=== PATIENT | female | born 1990 | race Caucasian/White ===

== ENCOUNTER 2020-12-25 19:54 | Emergency (ER) | payer MEDICAID ==
[~2020-12-25] VITALS: Ht 157.5 cm; Wt 63.5 kg
[2020-12-25 20:08] VITALS: BP 130/79
--- NOTE | 2020-12-25 20:08 | NUR ---
TO BED AMBULATORY
--- NOTE | 2020-12-25 20:20 | NUR ---
30 yo f bib self with c/c of r wrist pain x1wk 02/12. pt stated pain started all of sudden. when holding items pain increases and radiates to back. pt stated +numbness, +radial pulses bilat strong. pt is able to move hand. pt stated she took tylenol 6 hrs ago with little relief. bed locked in lowest position, side rails x2. lasr menst: november 26
--- NOTE | 2020-12-25 20:30 | NUR ---
rad at bedside.
--- NOTE | 2020-12-25 20:45 | NUR ---
ermd at bedside.
--- NOTE | 2020-12-25 20:46 | NUR ---
rad made aware of neg preg test.
--- NOTE | 2020-12-25 20:50 | NUR ---
rad at bedside
[2020-12-25] MEDS ORDERED: HYDROcodone/APAP 10/325 MG 1 TAB TAB PO ONE (21:20)
--- NOTE | 2020-12-25 21:26 | NUR ---
pt given a warm blanket. all needs met at this time. side rails x1, bed locked in lowest position.
[2020-12-25] MEDS ORDERED: IBUP-1801 PO (21:32)
--- NOTE | 2020-12-25 21:35 | NUR ---
emt at bedside providing tx.
[2020-12-25 21:45] VITALS: BP 130/79
== END 2020-12-25 21:45 | disposition home or self-care (01) ==
LOC: MED 19:54
DX: M25.531 Pain in right wrist (principal); Z79.899 Other long term (current) drug therapy; V89.2XXA Person injured in unspecified motor-vehicle accident, traffic, initial encounter; Y93.89 Activity, other specified; Y92.89 Other specified places as the place of occurrence of the external cause; Y99.8 Other external cause status
CPT/HCPCS: 73110; 81025; 99285

== ENCOUNTER 2023-07-03 18:51 | Emergency (ER) | payer MEDICAID, OTHER ==
[~2023-07-03] VITALS: Ht 160 cm; Wt 68.0 kg
[2023-07-03 18:51] VITALS: BP 121/78; PULSE 92; RESP 18; TEMP 97.8; O2SAT 98
[~2023-07-03 18:51] MED LIST: IBUP-1801 PO
[2023-07-03 20:20] LABS: BASOPHILS % (AUTO) 0.3 % (0.0-2.0); EOSINOPHILS # (AUTO) 0.1 K/uL (0-0.4); EOSINOPHILS % (AUTO) 0.7 % (0.0-4.0); HEMATOCRIT 38.2 % (36-48); HEMOGLOBIN 13.5 g/dL (12.0-16.0); LYMPHOCYTES # (AUTO) 1.8 K/uL (2.5-16.5); LYMPHOCYTES % (AUTO) 18.7 % (20.5-51.1); MEAN CORPUSCULAR HEMOGLOBIN 32 pg (27-31); MEAN CORPUSCULAR HGB CONC 35 g/dL (33-37); MEAN CORPUSCULAR VOLUME 90.3 fL (80-94); MONOCYTES # (AUTO) 0.7 K/uL (0.8-1.0); MONOCYTES % (AUTO) 7.1 % (1.7-9.3); NEUTROPHILS # (AUTO) 7.1 K/uL (1.8-7.7); NEUTROPHILS % (AUTO) 73.2 % (42.2-75.2); PLATELET COUNT (AUTO) 298 K/uL (140-450); RED BLOOD CELL COUNT(AUTO) 4.24 MIL/uL (4.20-5.40); RED CELL DISTRIBUTION WIDTH 13.4 % (11.6-13.7); WHITE BLOOD COUNT (AUTO) 9.7 K/uL (4.8-10.8)
[2023-07-03 20:40] LABS: ANION GAP 10.6 (8-16); CALCIUM 9.2 mg/dL (8.5-10.1); CARBON DIOXIDE 29.4 mmol/L (21-32); CREATININE 0.8 mg/dL (0.6-1.3)
[2023-07-03 20:45] LABS: AMPHETAMINE, URINE NEGATIVE ng/ml (NEG <=1000); BARBITURATE, URINE NEGATIVE ng/ml (NEG <=200); BENZODIAZEPINE, URINE NEGATIVE ng/mL (NEG <=200); CANNABINOID, URINE NEGATIVE ng/mL (NEG <=50); COCAINE, URINE NEGATIVE ng/mL (NEG <=300); OPIATE, URINE NEGATIVE ng/mL (NEG <=2000); PHENCYCLIDINE SCREEN,URINE NEGATIVE ng/mL (NEG <=25)
[2023-07-03 20:46] LABS: ACETAMINOPHEN < 0.5 ug/ml (10-30); ALCOHOL, BLOOD < 3 mg/dL (<10); SALICYLATE < 2.8 mg/dL (2.8-20.0)
[2023-07-03 22:53] LABS: HIV RAPID SCREEN NON-REACTIVE (NON REACTIV)
[2023-07-04 00:20] VITALS: O2SAT 98
[2023-07-04 03:50] VITALS: O2SAT 98
[2023-07-04] MEDS ORDERED: ACETAMINOPHEN EXTRA STRENGTH 500 MG TAB PO ONE (08:25)
[2023-07-04] MEDS ORDERED: OLANZapine 5 MG ODT PO SCH (09:00)
[2023-07-04 12:20] VITALS: BP 114/62; PULSE 72; RESP 16; TEMP 97.9; O2SAT 98
[2023-07-05 10:06] LABS: HEPATITIS B SURFACE ANTIBODY Reactive (.); HEPATITIS B SURFACE ANTIGEN Negative (Negative)
[2023-07-05 10:49] LABS: RAPID PLASMA REAGIN NON-REACTIVE (Non Reactiv)
== END 2023-07-04 12:19 ==
LOC: MED 18:51
DX: Z00.8 Encounter for other general examination (principal); T74.21XA Adult sexual abuse, confirmed, initial encounter; Z20.822 Contact with and (suspected) exposure to COVID-19; Z79.899 Other long term (current) drug therapy
CPT/HCPCS: 36415; 74176; 80048; 80305; 81025; 85025; 86592; 86703; 86706; 87340; 87426; 87529; 99285; G0480; G0482

== ENCOUNTER 2023-08-20 07:23 | Emergency (ER) | payer OTHER ==
[~2023-08-20] VITALS: Ht 157.5 cm; Wt 77.6 kg
[2023-08-20 07:28] VITALS: BP 106/67; PULSE 103; RESP 16; TEMP 97.1; O2SAT 97
[2023-08-20] MEDS: LORazepam 1 MG TAB PO ONE (08:20)
[2023-08-20 08:36] VITALS: BP 124/79; PULSE 88; RESP 16; TEMP 98; O2SAT 99
== END 2023-08-20 08:36 | disposition home or self-care (01) ==
LOC: MED 07:23
DX: E86.0 Dehydration (principal); R25.1 Tremor, unspecified; T43.615A Adverse effect of caffeine, initial encounter; F20.9 Schizophrenia, unspecified; Z79.899 Other long term (current) drug therapy; Y92.89 Other specified places as the place of occurrence of the external cause
CPT/HCPCS: 99283

== ENCOUNTER 2023-08-21 20:18 | Emergency (ER) | payer OTHER ==
[~2023-08-21] VITALS: Ht 162.6 cm; Wt 68.0 kg
[2023-08-21 20:25] VITALS: BP 123/78; PULSE 93; RESP 18; TEMP 98.2; O2SAT 99
[2023-08-21 22:56] LABS: APPEARANCE,URINE CLEAR (CLEAR); BILIRUBIN,URINE NEGATIVE (NEGATIVE); BLOOD, URINE NEGATIVE (NEGATIVE); COLOR,URINE YELLOW (YELLOW); LEUKOCYTE ESTERASE ,URINE 2+ (NEGATIVE); NITRITE, URINE NEGATIVE (NEGATIVE); PH,URINE 6.5 (5.0-9.0); PROTEIN,URINE NEGATIVE (NEGATIVE); UGLUCOSE NEGATIVE (NEGATIVE)
[2023-08-21 23:02] LABS: BACTERIA,URINE >30 (MANY) /HPF (None Seen); MUCUS,URINE 1+ /LPF (None Seen); RBC,URINE 0-5 /HPF (0-5); SQUAMOUS EPITHELIAL CELL,UR 0-3 (FEW) /LPF (0-3 (FEW))
[2023-08-21 23:03] LABS: AMPHETAMINE, URINE NEGATIVE ng/ml (NEG <=1000); BARBITURATE, URINE NEGATIVE ng/ml (NEG <=200); BENZODIAZEPINE, URINE POSITIVE ng/mL (NEG <=200); CANNABINOID, URINE NEGATIVE ng/mL (NEG <=50); COCAINE, URINE NEGATIVE ng/mL (NEG <=300); PHENCYCLIDINE SCREEN,URINE NEGATIVE ng/mL (NEG <=25)
[2023-08-21 23:04] LABS: OPIATE, URINE NEGATIVE ng/mL (NEG <=2000)
[2023-08-21 23:28] LABS: BASOPHILS % (AUTO) 0.4 % (0.0-2.0); EOSINOPHILS # (AUTO) 0.1 K/uL (0-0.4); EOSINOPHILS % (AUTO) 1.2 % (0.0-4.0); HEMATOCRIT 36.4 % (36-48); HEMOGLOBIN 12.9 g/dL (12.0-16.0); LYMPHOCYTES # (AUTO) 2.4 K/uL (2.5-16.5); LYMPHOCYTES % (AUTO) 25.9 % (20.5-51.1); MEAN CORPUSCULAR HEMOGLOBIN 32 pg (27-31); MEAN CORPUSCULAR HGB CONC 36 g/dL (33-37); MEAN CORPUSCULAR VOLUME 89.1 fL (80-94); MONOCYTES # (AUTO) 0.8 K/uL (0.8-1.0); MONOCYTES % (AUTO) 8.6 % (1.7-9.3); NEUTROPHILS # (AUTO) 5.9 K/uL (1.8-7.7); NEUTROPHILS % (AUTO) 63.9 % (42.2-75.2); PLATELET COUNT (AUTO) 271 K/uL (140-450); RED BLOOD CELL COUNT(AUTO) 4.08 MIL/uL (4.20-5.40); RED CELL DISTRIBUTION WIDTH 13.1 % (11.6-13.7); WHITE BLOOD COUNT (AUTO) 9.2 K/uL (4.8-10.8)
[2023-08-21 23:42] LABS: ANION GAP 7.5 (8-16); CALCIUM 8.8 mg/dL (8.5-10.1); CARBON DIOXIDE 30.4 mmol/L (21-32); CREATININE 0.8 mg/dL (0.6-1.3); POTASSIUM 3.9 mmol/L (3.5-5.1)
[2023-08-22] MEDS: LORazepam 1 MG TAB PO ONE (01:14)
[2023-08-22] MEDS: risperiDONE 1 MG TAB PO ONE (02:48)
[2023-08-22] MEDS ORDERED: NITR100C7 PO (06:06)
[2023-08-22 07:43] VITALS: TEMP 98
[2023-08-22 18:38] VITALS: BP 109/70; PULSE 84; RESP 18; O2SAT 95
[2023-08-22] MEDS ORDERED: risperiDONE 1 MG TAB PO SCH (21:00)
== END 2023-08-22 18:28 ==
LOC: MED 20:18
DX: S09.90XA Unspecified injury of head, initial encounter (principal); F20.9 Schizophrenia, unspecified; N39.0 Urinary tract infection, site not specified; Z79.899 Other long term (current) drug therapy; Y08.89XA Assault by other specified means, initial encounter; Y93.89 Activity, other specified; Y92.89 Other specified places as the place of occurrence of the external cause; Y99.8 Other external cause status
CPT/HCPCS: 36415; 70450; 80048; 80305; 81001; 81025; 85025; 87086; 99285